=== PATIENT | male | born 1980 | race Asian ===

== ENCOUNTER 2023-11-30 12:03 | Emergency (ER) | payer OTHER, SELFPAY ==
[2023-11-30] VITALS (11 sets, daily range): BP systolic 133–167; BP diastolic 91–103; PULSE 65–103; RESP 15–23; TEMP 37.1; O2SAT 96–99; BMI 25.8
--- NOTE | 2023-11-30 12:05 | DI.RAD.S_ITS ---
PROCEDURE: XR CHEST 1V INDICATIONS: chest pain TECHNIQUE: One view of the chest was acquired. COMPARISON: None. FINDINGS: Surgical changes and devices: None. Lungs and pleura: Lungs are clear. No pleural effusions or pneumothorax. Mediastinum: Mediastinal contours appear normal. Heart size is normal. Bones and chest wall: No suspicious bony lesions. Overlying soft tissues appear unremarkable. IMPRESSION: No acute pulmonary process. Dictated by: Mary Ott M.D. on 11/30/2023 at 13:30 Approved by: Mary Ott M.D. on 11/30/2023 at 13:31
--- NOTE | 2023-11-30 12:11 | EKG_ITS ---
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
[2023-11-30 12:14] LABS: Add Manual Diff / Slide Review NO; Basophils Absolute Auto 100 /uL (0-100); Eosinophils Absolute Auto 600 /uL (0-450); Eosinophils Percent Auto 4.8 % (2-4); Hematocrit 47.3 % (41-53); Hemoglobin 16.2 g/dL (13.5-17.5); Lymphocytes Absolute Auto 2800 /uL (1100-4500); Lymphocytes Percent Auto 20.9 % (25-40); Mean Corpuscular HGB Conc 34.3 % (30-36); Mean Corpuscular Hemoglobin 29.5 PG (26-34); Mean Corpuscular Volume 85.9 fL (80-100); Monocytes Absolute Auto 800 /uL (0-900); Monocytes Percent Auto 5.7 % (3-14); Neutrophils Absolute Auto 9000 /uL (1500-7000); Neutrophils Percent Auto 67.6 % (50-75); Platelet Count 361 X10^3/uL (150-400); Red Blood Cell Count 5.51 X10^6/uL (4.5-5.9); Red Cell Distribution Width 14.3 % (11.6-14.8); White Blood Cell Count 13.4 X10^3/uL (4.5-11.0)
--- NOTE | 2023-11-30 12:18 | PC.NURSE ---
Pt c/o of sob & cp that started last night after flying in from [place]. Pt states that his cp has resolved but states that he still feels like he cannot take a deep breath and has some sob with exertion.
[2023-11-30 12:21] LABS: Prothrombin Time 11.3 SECONDS (9.4-12.5)
[2023-11-30 12:24] LABS: PTT Partial Thromboplastin Tim 32 SECONDS (25.1-36.5)
[2023-11-30 12:26] LABS: Alanine Aminotransferase 29 IU/L (<50); Albumin 4.7 g/dL (3.5-5.0); Albumin Globulin Ratio 1.3 (1.0-2.8); Alkaline Phosphatase 73 U/L (38-126); Aspartate Aminotransferase 28 IU/L (17-59); Bilirubin Total 0.9 mg/dL (0.2-1.3); Blood Urea Nitrogen 16 mg/dL (9-20); Calcium 9.8 mg/dL (8.4-10.2); Carbon Dioxide 27 mmol/L (22-32); Chloride 101 mmol/L (98-107); Creatine Kinase 69 U/L (55-170); Estimated Glomerular Filt Rate > 60 mL/min (>60); Globulin 3.7 g/dL (1.7-4.1); Glucose 135 mg/dL (70-100); HEMOLYSIS 17 (0-50); Lipase 74 U/L (23-300); Magnesium 1.9 mg/dL (1.6-2.3); Potassium 3.6 mmol/L (3.4-5.1); Sodium 137 mmol/L (137-145); Total Protein 8.4 g/dL (6.3-8.2)
--- NOTE | 2023-11-30 12:36 | ED_ITS ---
HPI - Chest Pain General Chief Complaint: Chest Pain Stated Complaint: CP SOB Time Seen by Provider: 11/30/23 12:16 Source: patient, EMS and RN notes reviewed Mode of arrival: EMS Limitations: no limitations History of Present Illness HPI narrative: 43-year-old male history of hypertension dyslipidemia, patient presents with complaint of a single point of discomfort in the left side of his chest last night and a lot of burping. Patient states it will improve last night and then returned today, he states he felt just a little bit unwell overall no fevers or chills, no cold cough or congestion. Describes single-point over in his left side of his chest denies any radiation to his back belly neck. States his arms but a little crampy on and off but not always associated with his chest discomfort. States little bit short of breath earlier this morning. States no syncope. No issues with bowel movements or urination, no swelling in extremities. Patient states was on medication for blood pressure including losartan 100 mg and a statin but these were stopped because his vitals and labs had improved. Does not take an aspirin daily. Did try some Tums last night and had aspirin 325 mg EN route with EMS. States no prior surgeries. No known drug allergies. No tobacco, occasional alcohol, no recreational drugs. Did have a stress test 4 years ago which was negative. Does note that he has been flying recently in the past month for work including in the last 48 hours. Family history both mom and father had cardiac issues in their 70s. Patient lives in [place] but is currently working at the [employer]. He states there is a lot of fumes which he thinks may have also been causing some of his symptoms. Review of Systems Review of Systems ROS Unobtainable: All systems reviewed & are unremarkable except as noted in HPI and below Exam Narrative Exam Narrative: GENERAL: Alert and oriented x three, mild distress. No diaphoresis HEENT: Head normocephalic, atraumatic, EOMI, pupils reactive, face symmetric, moist mucous membranes NECK: Supple, full range of motion CARDIOVASCULAR: Regular rate and rhythm without murmurs, rubs or gallops. No reproducible chest pain. No JVD. No edema bilateral upper or lower extremities. RESPIRATORY: Breath sounds equal bilaterally, no wheezes rales or rhonchi. No tachypnea or accessory muscle use. Speaks in full sentences. ABDOMEN: Soft, nontender. Normoactive bowel sounds all 4 quadrants. No guarding or rebound, rigidity, no mass : No CVA tenderness EXTREMITIES: Normal range of motion, no clubbing or edema. Neurovascularly intact NEUROLOGICAL: Cranial nerves II through XII grossly intact. Moving all extremities SKIN: Warm, dry, no petechiae, no rashes or lesions. Initial Vital Signs Initial Vital Signs: Vital Signs Pulse Rate 91 H 11/30/23 11:58 Blood Pressure 167/103 H 11/30/23 11:58 Pulse Oximetry 98 11/30/23 11:58 Scores HEART Score Heart Score history: Moderately Suspicious Heart Score EKG: Normal Heart Score Age: 45-64 years old Heart Score risk factors: 1-2 risk factors Heart Score troponin: < or = to normal limit Heart Score Total: 3 Course Orders Ordered: ED Orders 11/30/23 12:04 Comprehensive Metabolic Panel Stat D Dimer Stat Lipase Stat Magnesium Stat NT-proBNP (BNP-Adult 18+) Stat PTT Partial Thromboplastin David Stat Prothrombin Time INR Stat Troponin & CK Cardiac Panel Stat 11/30/23 12:05 XR chest 1V Stat Complete Blood Count AUTO DIFF Stat EKG-12 Lead Stat 11/30/23 12:15 Covid-19 + FLU A/B + RSV - PCR Stat 11/30/23 14:12 Trop I [Troponin I] Stat 11/30/23 14:16 EKG-12 Lead Stat Discontinued Medications Aspirin (Aspirin 81 Mg Chew Tab) 324 mg PO NOW ONE Stop: 11/30/23 12:06 Last Admin: 11/30/23 12:07 Dose: Not Given Documented By: MPO Vital Signs Vital signs: Vital Signs - 8 hr 11/30/23 11:58 11/30/23 11:58 11/30/23 12:01 Temperature Pulse Rate 91 H 103 H Respiratory Rate Blood Pressure 167/103 H Pulse Oximetry 98 97 Oxygen Delivery Method Oxygen Flow Rate 11/30/23 12:06 11/30/23 12:30 11/30/23 12:30 Temperature 98.7 F Pulse Rate 90 79 Respiratory Rate 20 20 Blood Pressure 167/103 H 146/95 H Pulse Oximetry 98 97 Oxygen Delivery Method Room Air Oxygen Flow Rate 11/30/23 13:00 11/30/23 13:30 11/30/23 14:00 Temperature Pulse Rate 73 70 77 Respiratory Rate 15 21 23 Blood Pressure 154/94 H 145/99 H 158/99 H Pulse Oximetry 97 96 99 Oxygen Delivery Method Oxygen Flow Rate 11/30/23 14:12 11/30/23 14:30 11/30/23 14:30 Temperature Pulse Rate 73 65 Respiratory Rate 19 17 Blood Pressure 139/95 H 133/91 H Pulse Oximetry 96 97 Oxygen Delivery Method Room Air Nasal Cannula Oxygen Flow Rate 5 11/30/23 14:56 11/30/23 15:00 Temperature Pulse Rate 67 67 Respiratory Rate 22 22 Blood Pressure 142/96 H 139/96 H Pulse Oximetry 97 98 Oxygen Delivery Method Room Air Oxygen Flow Rate MDM - Chest Pain Lab Data 11/30/23 12:05 11/30/23 12:04 Labs: Lab Results 11/30/23 11/30/23 11/30/23 Range/Units 12:04 12:05 12:15 WBC 13.4 H (4.5-11.0) X10^3/uL RBC 5.51 (4.5-5.9) X10^6/uL Hgb 16.2 (13.5-17.5) g/dL Hct 47.3 (41-53) % MCV 85.9 (80-100) fL MCH 29.5 (26-34) PG MCHC 34.3 (30-36) % RDW 14.3 (11.6-14.8) % Plt Count 361 (150-400) X10^3/uL Neut % (Auto) 67.6 (50-75) % Lymph % (Auto) 20.9 L (25-40) % Howard % (Auto) 5.7 (3-14) % Eos % (Auto) 4.8 H (2-4) % Baso % (Auto) 1.0 (0-2) % Neut # (Auto) 9000 H (2719-1320) /uL Lymph # (Auto) 2800 (0406-7032) /uL Howard # (Auto) 800 (0-900) /uL Eos # (Auto) 600 H (0-450) /uL Baso # (Auto) 100 (0-100) /uL PT 11.3 (9.4-12.5) SECONDS INR 1.0 (0.9-1.3) APTT 32 (25.1-36.5) SECONDS D-Dimer 456 (<500) ng/ml Sodium 137 (137-145) mmol/L Potassium 3.6 (3.4-5.1) mmol/L Chloride 101 (98-107) mmol/L Carbon Dioxide 27 (22-32) mmol/L BUN 16 (9-20) mg/dL Creatinine 0.94 (0.66-1.25) mg/dL Estimated GFR > 60 (>60) mL/min BUN/Creatinine Ratio 17.0 (6-22) Glucose 135 H (70-100) mg/dL Calcium 9.8 (8.4-10.2) mg/dL Magnesium 1.9 (1.6-2.3) mg/dL Total Bilirubin 0.9 (0.2-1.3) mg/dL AST 28 (17-59) IU/L ALT 29 (<50) IU/L Alkaline Phosphatase 73 (38-126) U/L Total Creatine Kinase 69 (55-170) U/L Troponin I < 0.012 (0.01-0.034) ng/mL NT-Pro-B Natriuret Pep < 20 (<125) pg/mL Total Protein 8.4 H (6.3-8.2) g/dL Albumin 4.7 (3.5-5.0) g/dL Globulin 3.7 (1.7-4.1) g/dL Albumin/Globulin Ratio 1.3 (1.0-2.8) Lipase 74 (23-300) U/L SARS-CoV-2 (PCR) Negative (Negative) Influenza A (RT-PCR) Flu a negative (NEGATIVE) Influenza B (RT-PCR) Flu b negative (NEGATIVE) RSV (PCR) Negative (Negative) 11/30/23 Range/Units 14:12 WBC (4.5-11.0) X10^3/uL RBC (4.5-5.9) X10^6/uL Hgb (13.5-17.5) g/dL Hct (41-53) % MCV (80-100) fL MCH (26-34) PG MCHC (30-36) % RDW (11.6-14.8) % Plt Count (150-400) X10^3/uL Neut % (Auto) (50-75) % Lymph % (Auto) (25-40) % Howard % (Auto) (3-14) % Eos % (Auto) (2-4) % Baso % (Auto) (0-2) % Neut # (Auto) (9398-4450) /uL Lymph # (Auto) (8339-7084) /uL Howard # (Auto) (0-900) /uL Eos # (Auto) (0-450) /uL Baso # (Auto) (0-100) /uL PT (9.4-12.5) SECONDS INR (0.9-1.3) APTT (25.1-36.5) SECONDS D-Dimer (<500) ng/ml Sodium (137-145) mmol/L Potassium (3.4-5.1) mmol/L Chloride (98-107) mmol/L Carbon Dioxide (22-32) mmol/L BUN (9-20) mg/dL Creatinine (0.66-1.25) mg/dL Estimated GFR (>60) mL/min BUN/Creatinine Ratio (6-22) Glucose (70-100) mg/dL Calcium (8.4-10.2) mg/dL Magnesium (1.6-2.3) mg/dL Total Bilirubin (0.2-1.3) mg/dL AST (17-59) IU/L ALT (<50) IU/L Alkaline Phosphatase (38-126) U/L Total Creatine Kinase (55-170) U/L Troponin I < 0.012 (0.01-0.034) ng/mL NT-Pro-B Natriuret Pep (<125) pg/mL Total Protein (6.3-8.2) g/dL Albumin (3.5-5.0) g/dL Globulin (1.7-4.1) g/dL Albumin/Globulin Ratio (1.0-2.8) Lipase (23-300) U/L SARS-CoV-2 (PCR) (Negative) Influenza A (RT-PCR) (NEGATIVE) Influenza B (RT-PCR) (NEGATIVE) RSV (PCR) (Negative) Imaging Data Chest x-ray: Radiologist's Impression: Kinga Connelly??43??M??1980 ? Allergy/Adv: Not Recorded Close Chest X-Ray (Signed) Mary Ott - 11/30/23 Launch?Image [address] [address] XRay Report Signed Patient: Kinga Connelly MR#: [id number] : 1980 Acct:[id number] Age/Sex: 43 / M Date of Service: 11/30/23 Loc: ED Accession Number: [id number] Procedure: XR chest 1V Ordering Provider: Pat Her D.O. PROCEDURE: XR CHEST 1V INDICATIONS: chest pain TECHNIQUE: One view of the chest was acquired. COMPARISON: None. FINDINGS: Surgical changes and devices: None. Lungs and pleura: Lungs are clear. No pleural effusions or pneumothorax. Mediastinum: Mediastinal contours appear normal. Heart size is normal. Bones and chest wall: No suspicious bony lesions. Overlying soft tissues appear unremarkable. IMPRESSION: No acute pulmonary process. Dictated by: Mary Ott M.D. on 11/30/2023 at 13:30 Approved by: Mary Ott M.D. on 11/30/2023 at 13:31 ECG Data Attestation: I personally reviewed and interpreted this ECG as follows: Prior ECG tracings: not available for review Interpretation: Sinus rhythm rate of 79 [place] 154 QRS 80 QTC of 442, no acute ST elevation depression noted. Patient had EMS EKG earlier today which shows no dynamic changes from that now. 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 EKG 2. Sinus rhythm rate of 64 [place] 156 QRS 84 QTC of 435, no acute ST elevation, change in V2 although there is a little bit of motion otherwise contiguously appears similar no other acute ST elevation depression noted. [facility] Narrative Medical decision making narrative: 43-year-old male not currently on any medications but does have a history of hypertension dyslipidemia but states were stopped because his vitals and labs had improved. Patient has had a point of discomfort on his left chest with occasional radiation down his arm but he states sometimes not some shortness of breath. Patient has also recently traveled long distance by plane. Does have a history of stress test 4 years ago which was negative has family history of parents with cardiac issues in their 70s. EKG shows sinus rhythm no acute ST changes. Repeat EKG Chest x-ray is negative Labs shows white count of 13.4 hemoglobin of 16 platelets of 361, coags negative, electrolytes are normal BUN 16 creatinine 0.94 glucose of 135 LFTs are negative troponins less than 0.012, BNP is 20, lipase is 74. Repeat troponin is negative. Dimer is negative at 456 COVID/influenza/RSV is negative. Heart score is 3, patient does have a history of hypertension dyslipidemia currently untreated the patient states was stopped while he was [place] had tried some ayurvedic treatments which did seem to help. Discussed with patient would recommend follow-up but workup thus far today is negative. Patient does have his home medications still and we will restart them. Discussed return precautions. Discharge Plan Departure Patient Disposition: Home Clinical Impression: Chest pain Instructions: DI for Chest Pain Activity Restrictions/Additional Instructions: Please follow up for recheck. Talk with your physician about whether or not to continue your blood pressure and cholesterol medications. Please return for new or worsening symptoms, new chest pain or shortness of breath, lightheadedness or passing out, nausea or vomiting, diaphoresis or sweatiness, new swelling in extremities or other new or concerning changes. Stand Alone Forms: Patient Portal/API
[2023-11-30 12:37] LABS: NT-proBNP (BNP-Adult 18+) < 20 pg/mL (<125); Troponin I < 0.012 ng/mL (0.01-0.034)
[2023-11-30 12:59] LABS: Influenza A - CEPHEID Flu A NEGATIVE (NEGATIVE); Influenza B - CEPHEID Flu B NEGATIVE (NEGATIVE); Respiratory Syncytial Virus Negative (Negative)
[2023-11-30 13:00] LABS: COVID-19 CEPHEID 4-PLEX PCR Negative (Negative)
[2023-11-30 13:20] LABS: D Dimer 456 ng/ml (<500)
--- NOTE | 2023-11-30 14:23 | EKG_ITS ---
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
[2023-11-30 14:42] LABS: Troponin I < 0.012 ng/mL (0.01-0.034)
== END 2023-11-30 15:05 | disposition home or self-care (01) ==
PROVIDERS: Emergency Provider Emergency Medicine
DX: R07.9 Chest pain, unspecified (principal); Z86.79 Personal history of other diseases of the circulatory system; R06.02 Shortness of breath
CPT/HCPCS: 0241U; 36415; 71045; 80053; 82550; 83690; 83735; 83880; 84484; 85025; 85379; 85610; 85730; 93005; 99284